=== PATIENT | female | born 1985 | race Two or more races ===

== ENCOUNTER 2023-04-17 21:06 | Emergency (ER) | payer OTHER ==
[~2023-04-17] VITALS: Ht 152.4 cm; Wt 70.3 kg
[2023-04-17] MEDS ORDERED: HYDROCODONE/APAP 5/325MG TABLET PO ONE (21:30)
[2023-04-17] MEDS ORDERED: HYDROCODONE/APAP 5/325MG TABLET ONE (21:39)
[2023-04-17] MEDS ORDERED: IBUPROFEN 400 MG TABLET PO ONE (23:00)
[2023-04-17] MEDS ORDERED: ACETAMINOPHEN ES 500 MG TABLET PO ONE (23:00)
[2023-04-17] MEDS ORDERED: ACETAMINOPHEN ES 500 MG TABLET ONE (23:05)
[2023-04-17] MEDS ORDERED: IBUPROFEN 400 MG TABLET ONE (23:06)
[2023-04-17] MEDS ORDERED: KETO10TA2 PO (23:37)
[2023-04-17] MEDS ORDERED: MUPI22OI2 TP (23:37)
[2023-04-17] MEDS ORDERED: HYDR-4209 PO (23:37)
[2023-04-18 00:04] VITALS: BP 123/87; TEMP 98.6; O2SAT 98
== END 2023-04-18 00:07 | disposition home or self-care (01) ==
LOC: ER 21:08
DX: T22.151A Burn of first degree of right shoulder, initial encounter (principal); T21.11XA Burn of first degree of chest wall, initial encounter; T21.12XA Burn of first degree of abdominal wall, initial encounter; Z79.899 Other long term (current) drug therapy; S09.8XXA Other specified injuries of head, initial encounter; W18.39XA Other fall on same level, initial encounter; Y93.89 Activity, other specified; Y92.89 Other specified places as the place of occurrence of the external cause; Y99.8 Other external cause status
CPT/HCPCS: 70450-TC; 70486-TC